=== PATIENT | female | born 1985 | race Caucasian/White ===

== ENCOUNTER 2017-08-12 18:15 | Emergency (ER) | payer SELFPAY ==
[~2017-08-12] VITALS: Ht 160 cm; Wt 66.7 kg
[~2017-08-12 18:15] MED LIST: GABA-585 PO
[2017-08-12 18:27] VITALS: BP 121/84
--- NOTE | 2017-08-12 18:56 | ED.ADGEN ---
Past History Past Medical History: Anemia Past Surgical History: No Surgical History Alcohol Use: None Drug Use: None Adult General HPI HPI Patient is a 31 year old female who presents with cough and ear pain. Patient has had bodyaches, bilateral ear pain, general malaise over the last 48 hours. Her primary complaint is ear pain. Her last menstrual period was one month ago although she is uncertain if she is or not. She does not have urinary complaints but is requesting a urine screening analysis. No fever. She has had a cough that is nonproductive. She has no additional acute symptoms today. Review of Systems Review of Systems Constitutional: Denies fever or chills Eyes: Denies change in vision HENT: as documented above. Respiratory: Denies cough or shortness of breath Cardiovascular: No additional information not addressed in HPI GI: Denies abdominal pain : Denies dysuria or hematuria Musculoskeletal: Denies back pain or joint pain Integument: Denies rash or skin lesions All other systems were reviewed and found to be within normal limits, except as documented in this note. Allergies Allergies Allergies Coded Allergies Type Severity Reaction Last Updated Verified No Known Drug Allergies 08/12/17 No Physical Exam Physical Exam Constitutional: Well developed, well nourished, no acute distress, non-toxic appearance. HENT: Normocephalic, atraumatic, bilateral external ears normal, oropharynx moist, posterior oropharynx is normal. Bilateral ears are visualized. The TMs are dull and bulging. Eyes: PERRLA, EOMI, conjunctiva normal, no discharge Neck: Normal range of motion, no tenderness, supple, no stridor. Cardiovascular:Heart rate regular rhythm, no murmur Lungs & Thorax: Bilateral breath sounds clear to auscultation Skin: Warm, dry, no erythema, no rash Neurologic: Alert and oriented X 3 Psychologic: Affect normal, judgement normal, mood normal Current Patient Data Vital Signs Vital Signs Date Time Temp Pulse Resp B/P (MAP) Pulse Ox O2 Delivery O2 Flow Rate FiO2 08/12/17 18:27 97.7 76 16 100 Room Air Lab Results Laboratory Tests Test 08/12/17 18:09 08/12/17 18:59 POC Urine HCG, Qualitative hcg negative (Negative) Urine Collection Type Unknown Urine Color Yellow Urine Clarity Hazy Urine pH 7.0 Urine Specific [place] >=1.030 Urine Protein 30 mg/dl (NEG-TRACE) Urine Glucose (UA) Neg mg/dL (NEG) Urine Ketones (Stick) Trace mg/dL (NEG) Urine Blood Neg (NEG) Urine Nitrite Neg (NEG) Urine Bilirubin Neg (NEG) Urine Urobilinogen Dipstick 0.2 mg/dL (0.2 mg/dL) Urine Leukocyte Esterase Trace (NEG) Urine RBC 6-10 /HPF (0-2) Urine WBC 1-4 /HPF (0-4) Urine Squamous Epithelial Cells Many /LPF Urine Bacteria Few /HPF (0-FEW) Urine Mucus Marked /LPF EKG EKG [] Radiology/Procedures Radiology/Procedures [] Course & Med Decision Making Course & Med Decision Making Pertinent Labs and Imaging studies reviewed. (See chart for details) Patient is seen and examined in the emergency department. She has no acute complaints. She has findings consistent with most likely viral upper respiratory infection. There is some bulging and erythema of the tympanic membranes and she does complain of ear pain. Be placed on a course of antibiotics. She is encouraged to follow-up with her primary care doctor. Also, to use [id number] medications for symptom relief. 19:40: Urine results are reviewed. She had some findings concerning for UTI. Her urine was negative. She is discharged home on Bactrim. She is also given some medicine for relief of her body aches and cough. Patient is agreeable to this plan. All of her questions are answered prior to discharge home. She is encouraged to return to the ER for any new or worsening symptoms. Final Impression Final Impression Cough, viral syndrome. Otitis media, UTI Dragon Disclaimer Dragon Disclaimer This electronic medical record was generated, in whole or in part, using a voice recognition dictation system. WENDY BOWENS DO August 12, 2017 18:56
[2017-08-12] MEDS ORDERED: BENZ100C PO (19:07)
[2017-08-12] MEDS ORDERED: HYDR-2758 PO (19:07)
[2017-08-12] MEDS ORDERED: AZIT500T2 PO (19:07)
[2017-08-12 19:36] LABS: BILIRUBIN,URINE NEG (NEG); CLARITY,URINE HAZY; COLOR,URINE YELLOW; GLUCOSE,URINE NEG (NEG)
[2017-08-12 19:37] LABS: BACTERIA,URINE FEW /HPF (0-FEW); NITRITE,URINE NEG (NEG); SQUAMOUS EPITHELIAL CELL,UR MANY /LPF; UROBILINOGEN,URINE 0.2 mg/dL (0.2 mg/dL)
[2017-08-12] MEDS ORDERED: SULF1TAB24 PO (19:42)
== END 2017-08-12 19:45 | disposition home or self-care (01) ==
LOC: ER 18:15
DX: B34.9 Viral infection, unspecified (principal); N39.0 Urinary tract infection, site not specified; H66.93 Otitis media, unspecified, bilateral; Z86.2 Personal history of diseases of the blood and blood-forming organs and certain disorders involving the immune mechanism
CPT/HCPCS: 81001; 81025; 99283

== ENCOUNTER 2017-08-21 20:03 | Emergency (ER) | payer SELFPAY ==
[~2017-08-21] VITALS: Ht 160 cm; Wt 66.7 kg
[~2017-08-21 20:03] MED LIST changes: +AZIT500T2 PO; +BENZ100C PO; +HYDR-2758 PO; +SULF1TAB24 PO
[2017-08-21 20:13] VITALS: BP 131/89
--- NOTE | 2017-08-21 20:22 | ED.ADGEN ---
Past History Past Medical History: Anemia Past Surgical History: No Surgical History Smoking: Cigarettes Alcohol Use: Occasionally Drug Use: Amphetamine, Marijuana Adult General Chief Complaint Chief Complaint "... I don't feel any better than when I was here last week..."... " They gave me some antibiotic... but I did not fill those scripts...but .. I have been taking some faroese anti-biotics... I got from a friend for my UTI.... I probably should not been out swimming today and may have overdone... And probably should have not gone out drinking last night..." [facility] HPI Patient is a 31 year old female who presents with above hx and complaints generalized malaise, nausea, dysuria, arthralgia, myalgia, congestion, cough and allergies. Patient did eat pizza and chicken strips just before arrival. No specific ill contacts. Patient recently diagnosed with Trichomonas 2 months ago and a UTI that time. Patient seen on 08/12 in the emergency department diagnosed with otitis and UTI and viral syndrome. Patient does continue to smoke. Patient complains of ear discomfort. Patient denies any recent travel. Patient has been cleaning her ears with Q-tips. Patient denies any drug use. Patient does admit to drinking alcohol last night. Review of Systems Review of Systems Constitutional: Subjective complaints fever Eyes: Denies change in visual acuity, Complaints of itchy and redness of eyes. No pain. HENT: Hx of nasal congestion and drainage. Respiratory:Complaints of cough and wheezing Cardiovascular: No additional information not addressed in HPI [] GI: Denies abdominal pain, vomiting, bloody stools or diarrhea [] complaints of nausea. : Denies dysuria or hematuria [] Musculoskeletal: Denies back pain . Complaints of generalized myalgia and arthralgia joint pain [] Integument: Denies rash or skin lesions [] Neurologic: Denies headache, focal weakness or sensory changes [] Endocrine: Denies polyuria or polydipsia [] All other systems were reviewed and found to be within normal limits, except as documented in this note. Family History Family History Noncontributory Current Medications Current Medications Current Medications Medications (Trade) Dose Ordered Sig/Ronald Start Time Stop Time Status Last Admin Dose Admin Albuterol Sulfate (Ventolin Hfa) 2 puff 1X ONCE 08/21/17 21:15 08/21/17 21:16 DC 08/21/17 21:30 2 PUFF Ceftriaxone Sodium (Rocephin Im) 1 gm 1X ONCE 08/21/17 21:15 08/21/17 21:16 DC Ketorolac Tromethamine (Toradol) 60 mg 1X ONCE 08/21/17 21:15 08/21/17 21:16 DC 08/21/17 21:37 60 MG Neomycin/ Polymyxin/ Hydrocortisone (Cortisporin Otic) 2 drop 1X ONCE 08/21/17 21:15 08/21/17 21:16 DC 08/21/17 21:31 2 DROP Potassium Chloride (KCl Oral Soln) 40 meq 1X ONCE 08/21/17 23:30 08/21/17 23:31 DC Prednisone (Prednisone) 50 mg 1X ONCE 08/21/17 21:15 08/21/17 21:16 DC 08/21/17 21:28 50 MG Allergies Allergies Allergies Coded Allergies Type Severity Reaction Last Updated Verified No Known Drug Allergies 08/12/17 No Physical Exam Physical Exam Constitutional: Moderate bili acute distress, non-toxic appearance. [] HENT: Normocephalic, atraumatic, bilateral external ears abraded , oropharynx moist, mild injection of pharynx, postnasal drainage, no oral exudates, nose congested and clear rhinorrhea. Eyes: PERRLA, EOMI, conjunctiva mild injection, and clear discharge. [] Neck: Normal range of motion, no tenderness, supple, no stridor. [] Cardiovascular:Heart rate regular rhythm, no murmur [] Lungs & Thorax: Bilateral breath sounds equal with scattered wheezes auscultation [] Abdomen: Bowel sounds normal, soft, mild generalized tenderness, no masses, no pulsatile masses. []Agent declines rectal/ pelvic exam at this time. Obese. Skin: Warm, dry, no erythema, no rash. [] Back: No tenderness, no CVA tenderness. [] Extremities: No tenderness, no cyanosis, no clubbing, ROM intact, no edema. [] Neurologic: Alert and oriented X 3, normal motor function, normal sensory function, no focal deficits noted. [] Psychologic: Affect anxious, judgement normal, mood normal. [] Current Patient Data Vital Signs Vital Signs Date Time Temp Pulse Resp B/P (MAP) Pulse Ox O2 Delivery O2 Flow Rate FiO2 08/21/17 20:13 98.2 87 16 99 Room Air Lab Results Laboratory Tests Test 08/21/17 20:24 08/21/17 22:06 Urine Collection Type Unknown Urine Color Yellow Urine Clarity Hazy Urine pH 6.0 Urine Specific [place] >=1.030 Urine Protein Trace (NEG-TRACE) Urine Glucose (UA) Neg mg/dL (NEG) Urine Ketones (Stick) Neg mg/dL (NEG) Urine Blood Neg (NEG) Urine Nitrite Neg (NEG) Urine Bilirubin Neg (NEG) Urine Urobilinogen Dipstick 0.2 mg/dL (0.2 mg/dL) Urine Leukocyte Esterase Neg (NEG) Urine RBC 0 /HPF (0-2) Urine WBC 1-4 /HPF (0-4) Urine Squamous Epithelial Cells Many /LPF Urine Bacteria Mod /HPF (0-FEW) Urine Mucus Marked /LPF Urine Opiates Screen Neg (NEG) Urine Methadone Screen Neg (NEG) Urine Barbiturates Neg (NEG) Urine Phencyclidine Screen Neg (NEG) Urine Amphetamine/Methamphetamine Pos (NEG) Urine Benzodiazepines Screen Neg (NEG) Urine Cocaine Screen Neg (NEG) Urine Cannabinoids Screen Pos (NEG) Urine Ethyl Alcohol Neg (NEG) White Blood Count 10.6 x10^3/uL (4.0-11.0) Red Blood Count 4.71 x10^6/uL (3.50-5.40) Hemoglobin 13.9 g/dL (12.0-15.5) Hematocrit 41.3 % (36.0-47.0) Mean Corpuscular Volume 88 fL (79-100) Mean Corpuscular Hemoglobin 30 pg (25-35) Mean Corpuscular Hemoglobin Concent 34 g/dL (31-37) Red Cell Distribution Width 14.3 % (11.5-14.5) Platelet Count 465 x10^3/uL (140-400) H Neutrophils (%) (Auto) 46 % (31-73) Lymphocytes (%) (Auto) 42 % (24-48) Monocytes (%) (Auto) 8 % (0-9) Eosinophils (%) (Auto) 4 % (0-3) H Basophils (%) (Auto) 1 % (0-3) Neutrophils # (Auto) 4.9 x10^3uL (1.8-7.7) Lymphocytes # (Auto) 4.4 x10^3/uL (1.0-4.8) Monocytes # (Auto) 0.8 x10^3/uL (0.0-1.1) Eosinophils # (Auto) 0.4 x10^3/uL (0.0-0.7) Basophils # (Auto) 0.1 x10^3/uL (0.0-0.2) Sodium Level 140 mmol/L (136-145) Potassium Level 3.1 mmol/L (3.5-5.1) L Chloride Level 103 mmol/L (98-107) Carbon Dioxide Level 24 mmol/L (21-32) Anion Gap 13 (6-14) Blood Urea Nitrogen 13 mg/dL (7-20) Creatinine 0.7 mg/dL (0.6-1.0) Estimated GFR (Cockcroft-Gault) 97.6 Glucose Level 100 mg/dL (70-99) H Calcium Level 9.3 mg/dL (8.5-10.1) Total Bilirubin 0.4 mg/dL (0.2-1.0) Direct Bilirubin 0.1 mg/dL (0.0-0.2) Aspartate Amino Transferase (AST) 14 U/L (15-37) L Alanine Aminotransferase (ALT) 18 U/L (14-59) Alkaline Phosphatase 94 U/L (46-116) Total Protein 7.9 g/dL (6.4-8.2) Albumin 4.2 g/dL (3.4-5.0) EKG EKG [] Radiology/Procedures Radiology/Procedures My interpretation chest x-ray shows no acute cardiopulmonary findings. Course & Med Decision Making Course & Med Decision Making Pertinent Labs and Imaging studies reviewed. (See chart for details) patient encouraged to stop smoking and illicit drug use. Patient stay on a clear fluid diet only for the next 2 days. Patient push fruit juices. Patient to follow-up urine cultures. Patient take Keflex 500 x3 times a day. Patient stop cleaning ears with Q-tips because of canal excoriations. Follow-up primary care. Return if any concerns. Use MDI 2 puffs 4 times a day. Take Tylenol and ibuprofen as needed for discomfort. [] Final Impression Final Impression 1. Bronchitis 2. UTI 3. Marijuana, tobacco and methamphetamine use 4. Excoriation of ear canals 5. Noncompliance with medical regimen 6. Viral syndrome/allergies seasonal[] 7, Hypokalemia Dragon Disclaimer Dragon Disclaimer This electronic medical record was generated, in whole or in part, using a voice recognition dictation system. JANET ALAN MD Aug 21, 2017 20:22
[2017-08-21 21:15] LABS: BILIRUBIN,URINE NEG (NEG); CLARITY,URINE HAZY; COLOR,URINE YELLOW; GLUCOSE,URINE NEG (NEG); NITRITE,URINE NEG (NEG); UROBILINOGEN,URINE 0.2 mg/dL (0.2 mg/dL)
[2017-08-21] MEDS ORDERED: predniSONE 10 MG TABLET PO ONE (21:15)
[2017-08-21] MEDS ORDERED: ALBUTEROL SULFATE 8GM INHALER. INH ONE (21:15)
[2017-08-21] MEDS ORDERED: cefTRIAXone IM 1 GM VIAL IM ONE ×2 (21:15)
[2017-08-21] MEDS ORDERED: NEOMYCIN/POLYMYXIN/HC OTIC SUSPENSION 10ML BOTTLE. AU ONE (21:15)
[2017-08-21] MEDS ORDERED: KETOROLAC 60 MG/2 ML VIAL. IM ONE (21:15)
[2017-08-21 21:22] LABS: AMPHETAMINE/METHAMPHETAMINE POS (NEG); BARBITURATES NEG (NEG); BENZODIAZEPINES NEG (NEG); CANNABINOIDS POS (NEG); COCAINE NEG (NEG); METHADONE NEG (NEG); OPIATES NEG (NEG); PHENCYCLIDINE NEG (NEG)
[2017-08-21 21:25] LABS: BACTERIA,URINE MOD /HPF (0-FEW); RBC,URINE 0 /HPF (0-2); SQUAMOUS EPITHELIAL CELL,UR MANY /LPF
[2017-08-21 22:21] LABS: BASO # 0.1 x10^3/uL (0.0-0.2); BASO % 1 % (0-3); EOS # 0.4 x10^3/uL (0.0-0.7); EOS % 4 % (0-3); HEMATOCRIT 41.3 % (36.0-47.0); HEMOGLOBIN 13.9 g/dL (12.0-15.5); LYMPH # 4.4 x10^3/uL (1.0-4.8); LYMPH % 42 % (24-48); MEAN CORPUSCULAR HEMOGLOBIN 30 pg (25-35); MEAN CORPUSCULAR HGB CONC 34 g/dL (31-37); MEAN CORPUSCULAR VOLUME 88 fL (79-100); MONO # 0.8 x10^3/uL (0.0-1.1); MONO % 8 % (0-9); NEUT # 4.9 x10^3uL (1.8-7.7); NEUT % 46 % (31-73); PLATELET COUNT 465 x10^3/uL (140-400); RED BLOOD COUNT 4.71 x10^6/uL (3.50-5.40); RED CELL DISTRIBUTION WIDTH 14.3 % (11.5-14.5); WHITE BLOOD COUNT 10.6 x10^3/uL (4.0-11.0)
--- NOTE | 2017-08-21 22:30 | RAD ---
EXAM: CHEST 2 VIEWS. HISTORY: Cough, congestion. COMPARISON: None. FINDINGS: Frontal and lateral views of the chest are obtained. There are no confluent infiltrates. There is no pneumothorax or pleural effusion. The heart is not enlarged. IMPRESSION: 1. No confluent infiltrates. Electronically signed by: Deena Jimenez MD (08/21/2017 10:27 PM) [facility]
[2017-08-21 22:36] LABS: ALBUMIN 4.2 g/dL (3.4-5.0); CALCIUM 9.3 mg/dL (8.5-10.1); CREATININE 0.7 mg/dL (0.6-1.0); DIRECT BILIRUBIN 0.1 mg/dL (0.0-0.2); GFR 97.6; POTASSIUM 3.1 mmol/L (3.5-5.1); TOTAL BILIRUBIN 0.4 mg/dL (0.2-1.0); TOTAL PROTEIN 7.9 g/dL (6.4-8.2)
[2017-08-21] MEDS ORDERED: CEPH-264 PO (23:24)
[2017-08-21] MEDS ORDERED: PRED50TA PO (23:24)
[2017-08-21] MEDS ORDERED: POTASSIUM CHLORIDE 20 MEQ/15 ML ORAL LIQUID. PO ONE (23:30)
== END 2017-08-21 23:55 | disposition home or self-care (01) ==
LOC: ER 20:03
DX: J40 Bronchitis, not specified as acute or chronic (principal); N39.0 Urinary tract infection, site not specified; F12.90 Cannabis use, unspecified, uncomplicated; F15.90 Other stimulant use, unspecified, uncomplicated; S00.412A Abrasion of left ear, initial encounter; S00.411A Abrasion of right ear, initial encounter; F17.210 Nicotine dependence, cigarettes, uncomplicated; E87.6 Hypokalemia; Z91.19 Patient's noncompliance with other medical treatment and regimen; Z86.2 Personal history of diseases of the blood and blood-forming organs and certain disorders involving the immune mechanism; X58.XXXA Exposure to other specified factors, initial encounter; Y93.89 Activity, other specified; Y99.8 Other external cause status; Y92.89 Other specified places as the place of occurrence of the external cause
CPT/HCPCS: 36415; 71046; 80048; 80076; 80307; 81001; 85025; 87086; 94640; 96372; 99285; J0696; J1885; J7512; J7613; G0479

== ENCOUNTER 2017-09-06 00:11 | Emergency (ER) | payer SELFPAY ==
[~2017-09-06] VITALS: Ht 160 cm; Wt 59.0 kg
[~2017-09-06 00:11] MED LIST changes: +CEPH-264 PO; +PRED50TA PO
--- NOTE | 2017-09-06 00:13 | ED.ADGEN ---
Past History Past Medical History: Anemia, Constipation, UTI Past Surgical History: No Surgical History Smoking: Cigarettes Alcohol Use: Occasionally Drug Use: Amphetamine, Marijuana Adult General Chief Complaint Chief Complaint ".. I have some abd. pain..."..." I am having it all the time... ".. " Hoa been nauseated today..." HPI HPI Patient is a 31 year old female who presents with above hx and complaints in my abdomen pain, nausea and occasional vomiting. Patient has had recurrent episodes of vomiting and nausea. Patient states her stomach gets upset she frequently has nausea and vomiting. Patient does smoke. Patient has used drugs previously. Patient denies any history of immunosuppression. Patient denies any intake bad food. Patient denies any trauma. Patient does not follow-up primary care. Patient does continue to smoke. Patient reports her stools normal color however they did have hard balls of stool. Review of Systems Review of Systems Constitutional: Denies fever or chills [] Eyes: Denies change in visual acuity, redness, or eye pain [] HENT: Denies nasal congestion or sore throat [] Respiratory: Denies cough or shortness of breath [] Cardiovascular: No additional information not addressed in HPI [] GI: Complaints of generalized abdominal pain, nausea, vomiting, and constipation : Denies dysuria or hematuria [] Musculoskeletal: Denies back pain or joint pain [] Integument: Denies rash or skin lesions [] Neurologic: Denies headache, focal weakness or sensory changes [] Endocrine: Denies polyuria or polydipsia [] All other systems were reviewed and found to be within normal limits, except as documented in this note. Family History Family History Noncontributory Current Medications Current Medications Current Medications Medications (Trade) Dose Ordered Sig/Ronald Start Time Stop Time Status Last Admin Dose Admin Ceftriaxone Sodium (Rocephin Im) 1 gm 1X ONCE 09/06/17 02:00 09/06/17 02:01 DC 09/06/17 01:50 1 GM Famotidine (Pepcid) 20 mg 1X ONCE 09/06/17 02:00 09/06/17 02:01 DC 09/06/17 01:50 20 MG Ketorolac Tromethamine (Toradol) 30 mg 1X ONCE 09/06/17 01:30 09/06/17 01:31 DC 09/06/17 01:15 30 MG Lactated Ringer's 1,000 ml @ 1,000 mls/hr Q1H 09/06/17 01:30 09/06/17 02:29 DC 09/06/17 01:14 1,000 MLS/HR Magnesium Hydroxide (Milk Of Magnesia) 2,400 mg 1X ONCE 09/06/17 02:00 09/06/17 02:01 DC 09/06/17 02:30 2,400 MG Ondansetron HCl (Zofran) 8 mg 1X ONCE 09/06/17 01:30 09/06/17 01:31 DC 09/06/17 01:15 8 MG See nursing for home meds Allergies Allergies Allergies Coded Allergies Type Severity Reaction Last Updated Verified No Known Drug Allergies 08/12/17 No Physical Exam Physical Exam Constitutional: no acute distress, non-toxic appearance. [] HENT: Normocephalic, atraumatic, bilateral external ears normal, oropharynx moist, no oral exudates, nose normal. [] Eyes: PERRLA, EOMI, conjunctiva normal, no discharge. [] Neck: Normal range of motion, no tenderness, supple, no stridor. [] Cardiovascular:Heart rate regular rhythm, no murmur [] Lungs & Thorax: Bilateral breath sounds equal at apexes with scattered wheezes on auscultation [] Abdomen: Bowel sounds normal, soft, generalized tenderness, no masses, no pulsatile masses. Distended. No rebound. Skin: Warm, dry, no erythema, no rash. [] Back: No tenderness, no CVA tenderness. [] Extremities: No tenderness, no cyanosis, no clubbing, ROM intact, no edema. [] No ture rebound. Neurologic: Alert and oriented X 3, normal motor function, normal sensory function, no focal deficits noted. [] Psychologic: Affect anxious, judgement normal, mood normal. [] Current Patient Data Vital Signs Vital Signs Date Time Temp Pulse Resp B/P (MAP) Pulse Ox O2 Delivery O2 Flow Rate FiO2 09/06/17 02:10 98.3 56 20 105/56 (72) 98 Room Air Lab Results Laboratory Tests Test 09/05/17 23:33 09/06/17 00:15 09/06/17 00:35 POC Urine HCG, Qualitative hcg negative (Negative) Urine Collection Type Void Urine Color Yellow Urine Clarity Hazy Urine pH 5.5 Urine Specific [place] >=1.030 Urine Protein Trace (NEG-TRACE) Urine Glucose (UA) Neg mg/dL (NEG) Urine Ketones (Stick) Trace mg/dL (NEG) Urine Blood Neg (NEG) Urine Nitrite Neg (NEG) Urine Bilirubin Neg (NEG) Urine Urobilinogen Dipstick 0.2 mg/dL (0.2 mg/dL) Urine Leukocyte Esterase Trace (NEG) Urine RBC Occ /HPF (0-2) Urine WBC 5-10 /HPF (0-4) Urine Squamous Epithelial Cells Mod /LPF Urine Bacteria Mod /HPF (0-FEW) Urine Mucus Mod /LPF Urine Yeast Present /HPF Urine Opiates Screen Pos (NEG) Urine Methadone Screen Neg (NEG) Urine Barbiturates Neg (NEG) Urine Phencyclidine Screen Neg (NEG) Urine Amphetamine/Methamphetamine Pos (NEG) Urine Benzodiazepines Screen Pos (NEG) Urine Cocaine Screen Neg (NEG) Urine Cannabinoids Screen Pos (NEG) Urine Ethyl Alcohol Neg (NEG) White Blood Count 10.9 x10^3/uL (4.0-11.0) Red Blood Count 4.64 x10^6/uL (3.50-5.40) Hemoglobin 13.3 g/dL (12.0-15.5) Hematocrit 39.9 % (36.0-47.0) Mean Corpuscular Volume 86 fL (79-100) Mean Corpuscular Hemoglobin 29 pg (25-35) Mean Corpuscular Hemoglobin Concent 33 g/dL (31-37) Red Cell Distribution Width 14.2 % (11.5-14.5) Platelet Count 346 x10^3/uL (140-400) Neutrophils (%) (Auto) 63 % (31-73) Lymphocytes (%) (Auto) 26 % (24-48) Monocytes (%) (Auto) 8 % (0-9) Eosinophils (%) (Auto) 3 % (0-3) Basophils (%) (Auto) 1 % (0-3) Neutrophils # (Auto) 6.8 x10^3uL (1.8-7.7) Lymphocytes # (Auto) 2.8 x10^3/uL (1.0-4.8) Monocytes # (Auto) 0.9 x10^3/uL (0.0-1.1) Eosinophils # (Auto) 0.3 x10^3/uL (0.0-0.7) Basophils # (Auto) 0.1 x10^3/uL (0.0-0.2) Prothrombin Time 10.4 SEC (9.4-11.4) Prothrombin Time INR 1.0 (0.9-1.1) PTT 26 SEC (23-33) Sodium Level 138 mmol/L (136-145) Potassium Level 3.3 mmol/L (3.5-5.1) L Chloride Level 102 mmol/L (98-107) Carbon Dioxide Level 28 mmol/L (21-32) Anion Gap 8 (6-14) Blood Urea Nitrogen 8 mg/dL (7-20) Creatinine 0.7 mg/dL (0.6-1.0) Estimated GFR (Cockcroft-Gault) 97.6 Glucose Level 106 mg/dL (70-99) H Calcium Level 9.2 mg/dL (8.5-10.1) Total Bilirubin 0.3 mg/dL (0.2-1.0) Direct Bilirubin 0.1 mg/dL (0.0-0.2) Aspartate Amino Transferase (AST) 18 U/L (15-37) Alanine Aminotransferase (ALT) 72 U/L (14-59) H Alkaline Phosphatase 102 U/L (46-116) Creatine Kinase 39 U/L (26-192) Creatine Kinase MB (Mass) < 0.5 ng/mL (0.0-3.6) Creatine Kinase MB Relative Index 1.3 % (0-4) Troponin I Quantitative < 0.017 ng/mL (0-0.055) Total Protein 7.5 g/dL (6.4-8.2) Albumin 4.0 g/dL (3.4-5.0) Amylase Level 39 U/L (25-115) Lipase 103 U/L (73-393) EKG EKG [] Radiology/Procedures Radiology/Procedures My interpretation of acute abdomen shows no free air under the diaphragm. Increased stool . Some calcification Rt.possible gall stones. [] Course & Med Decision Making Course & Med Decision Making Pertinent Labs and Imaging studies reviewed. (See chart for details) Clear fluid diet only. No solids- No milk products. Must allow bowel rest. Must follow up with primary. Follow up urine cultures. Stop illicit drug use. Stop smoking. Tylenol and Ibuprofen for pain. [] Final Impression Final Impression 1. Abdomen pain[] 2. Constipation 3. UTI 4. Polysubstance abuse and Tobacco usage Dragon Disclaimer Dragon Disclaimer This electronic medical record was generated, in whole or in part, using a voice recognition dictation system. JANET ALAN MD Sep 06, 2017 00:13
[2017-09-06 00:41] LABS: BARBITURATES NEG (NEG); BENZODIAZEPINES POS (NEG); CANNABINOIDS POS (NEG); COCAINE NEG (NEG); METHADONE NEG (NEG); OPIATES POS (NEG); PHENCYCLIDINE NEG (NEG)
[2017-09-06 00:43] LABS: AMPHETAMINE/METHAMPHETAMINE POS (NEG)
[2017-09-06 00:50] LABS: BILIRUBIN,URINE NEG (NEG); CLARITY,URINE HAZY; COLOR,URINE YELLOW; GLUCOSE,URINE NEG (NEG); NITRITE,URINE NEG (NEG); RBC,URINE OCC /HPF (0-2); UROBILINOGEN,URINE 0.2 mg/dL (0.2 mg/dL)
[2017-09-06 00:51] LABS: BACTERIA,URINE MOD /HPF (0-FEW); SQUAMOUS EPITHELIAL CELL,UR MOD /LPF; YEAST,URINE PRESENT /HPF
[2017-09-06 01:04] LABS: BASO # 0.1 x10^3/uL (0.0-0.2); BASO % 1 % (0-3); EOS # 0.3 x10^3/uL (0.0-0.7); EOS % 3 % (0-3); HEMATOCRIT 39.9 % (36.0-47.0); HEMOGLOBIN 13.3 g/dL (12.0-15.5); LYMPH # 2.8 x10^3/uL (1.0-4.8); LYMPH % 26 % (24-48); MEAN CORPUSCULAR HEMOGLOBIN 29 pg (25-35); MEAN CORPUSCULAR HGB CONC 33 g/dL (31-37); MEAN CORPUSCULAR VOLUME 86 fL (79-100); MONO # 0.9 x10^3/uL (0.0-1.1); MONO % 8 % (0-9); NEUT # 6.8 x10^3uL (1.8-7.7); NEUT % 63 % (31-73); PLATELET COUNT 346 x10^3/uL (140-400); RED BLOOD COUNT 4.64 x10^6/uL (3.50-5.40); RED CELL DISTRIBUTION WIDTH 14.2 % (11.5-14.5); WHITE BLOOD COUNT 10.9 x10^3/uL (4.0-11.0)
[2017-09-06] MEDS ORDERED: ONDANSETRON PF 4 MG/2 ML VIAL. IV ONE (01:30)
[2017-09-06] MEDS ORDERED: KETOROLAC 30 MG/ML VIAL. IV ONE (01:30)
[2017-09-06] MEDS ORDERED: IV RINGERS SOLUTION,LACTATED 1,000 ML IV SCH (01:30)
[2017-09-06 01:32] LABS: ALK PHOS 102 U/L (46-116); ALT (SGPT) 72 U/L (14-59); AMYLASE 39 U/L (25-115); ANION GAP 8 (6-14); AST (SGOT) 18 U/L (15-37); BLOOD UREA NITROGEN 8 mg/dL (7-20); CALCIUM 9.2 mg/dL (8.5-10.1); CARBON DIOXIDE 28 mmol/L (21-32); CHLORIDE 102 mmol/L (98-107); CREATININE 0.7 mg/dL (0.6-1.0); DIRECT BILIRUBIN 0.1 mg/dL (0.0-0.2); GFR 97.6; GLUCOSE 106 mg/dL (70-99); LIPASE 103 U/L (73-393); POTASSIUM 3.3 mmol/L (3.5-5.1); SODIUM 138 mmol/L (136-145); TOTAL BILIRUBIN 0.3 mg/dL (0.2-1.0); TOTAL PROTEIN 7.5 g/dL (6.4-8.2)
[2017-09-06] MEDS ORDERED: CEPH-264 PO (01:44)
[2017-09-06] MEDS ORDERED: ONDA8TAB12 PO (01:59)
[2017-09-06] MEDS ORDERED: cefTRIAXone IM 1 GM VIAL IM ONE (02:00)
[2017-09-06] MEDS ORDERED: MAGNESIUM HYDROXIDE 2,400 MG/30 ML ORAL.SUSP. PO ONE (02:00)
[2017-09-06] MEDS ORDERED: FAMOTIDINE 20 MG TABLET PO ONE (02:00)
[2017-09-06 02:10] VITALS: BP 105/56
--- NOTE | 2017-09-06 06:06 | RAD ---
EXAM: Two view abdomen with one view chest HISTORY: Abdominal pain. COMPARISON: None. FINDINGS: A frontal view of the chest and supine/upright views of the abdomen are obtained. There are no confluent infiltrates. There is no pneumothorax or pleural effusion. The heart is not enlarged. There is a calcified granuloma on the left. There is no pneumoperitoneum. There are no distended small bowel loops or significant air-fluid levels. There is gas distally. Stool throughout the colon is consistent with constipation. IMPRESSION: 1. No confluent infiltrates. 2. Correlate for constipation. No evidence of obstruction. Electronically signed by: Deena Jimenez MD (09/06/2017 6:02 AM) [id number]
== END 2017-09-06 02:18 | disposition home or self-care (01) ==
LOC: ER 00:11
DX: N39.0 Urinary tract infection, site not specified (principal); K59.00 Constipation, unspecified; F19.10 Other psychoactive substance abuse, uncomplicated; F17.210 Nicotine dependence, cigarettes, uncomplicated; F15.10 Other stimulant abuse, uncomplicated; F12.10 Cannabis abuse, uncomplicated
CPT/HCPCS: 36415; 74022; 80048; 80076; 80307; 81001; 81025; 82150; 82553; 83690; 84484; 85025; 85610; 85730; 87086; 96361; 96372; 96374; 96375; 99285; J0696; J1885; J2405; J7120; G0479